=== PATIENT | male | born 1995 | race Hispanic/Latino ===

== ENCOUNTER 2018-09-05 10:02 | Emergency (ER) | payer BC ==
[2018-09-05 10:49] LABS: Absolute Lymphocytes (CBC) 0.9 K/uL (0.7-4.9); Absolute Monocytes 0.6 K/uL (0.1-1.3); Absolute Neutrophil 7.6 K/uL (1.8-8.0); Basophils % 0.3 % (0-1.3); Eosinophils % 0.6 % (0-4.4); Hematocrit 45.2 % (39.6-49.0); MCH 31.4 pg (27.0-35.0); MPV 9.9 fL (7.6-11.3); Monocytes % 6.2 % (3.3-12.3); RBC Red Blood Cell Count 5.03 M/uL (4.33-5.43)
[2018-09-05 11:06] LABS: BUN Blood Urea Nitrogen 13 mg/dL (7-18); Bicarbonate 25 mmol/L (21-32); Glucose Level 150 mg/dL (74-106); Potassium 3.7 mmol/L (3.5-5.1); Sodium Level 137 mmol/L (136-145); Troponin (Emerg Dept Use Only) < 0.02 ng/mL (0.0-0.045)
--- NOTE | 2018-09-05 11:17 | RAD REPORT ---
EXAM DESCRIPTION: RAD - Chest Single View - 09/05/2018 11:08 am CLINICAL HISTORY: dizziness Chest pain. COMPARISON: Chest Single View dated 07/31/2016 FINDINGS: Portable technique limits examination quality. The lungs are grossly clear. The heart is normal in size. No displaced fractures. IMPRESSION: No acute intrathoracic process suspected.
--- NOTE | 2018-09-05 11:28 | ER ---
Nurse's Notes [facility] Name: Pako Aguilar Age: 23 yrs Sex: Male : 1995 Arrival Date: 09/05/2018 Time: 10:06 Bed 17 Private MD: None, None Diagnosis: Acute stress reaction;Dizziness and giddiness;Hyperventilation Presentation: 09/05 10:26 Presenting complaint: Patient states: started as feeling light headed, dizzy while at iw work, felt off balance, also felt heaviness in left arm, checked his sugar and it was 60, ate something, came up to 140, felt like he was making himself fell panicked because he was worried about a heart attack, had a similar episode of anxiety 2 years ago. Transition of care: patient was not received from another setting of care. Onset of symptoms was September 05, 2018. Risk Assessment: Do you want to hurt yourself or someone else? Patient reports no desire to harm self or others. Initial Sepsis Screen: Does the patient meet any 2 criteria? No. Patient's initial sepsis screen is negative. Does the patient have a suspected source of infection? No. Patient's initial sepsis screen is negative. Care prior to arrival: None. 10:26 Method Of Arrival: Ambulatory iw 10:26 Acuity: HERMILO 3 iw Historical: - Allergies: 10:29 NKA; iw - Home Meds: 10:29 Lantus 100 unit/mL Sub-Q soln 24 unit nightly [Active]; Novolog 100 unit/mL Sub-Q soln iw after meals [Active]; - PMHx: 10:29 Diabetes - IDDM; iw - PSHx: 10:29 None; iw - Immunization history:: Adult Immunizations not up to date. - Social history:: Smoking status: Patient uses tobacco products, 2 packs per week. - Ebola Screening: : Patient negative for fever greater than or equal to 101.5 degrees Fahrenheit, and additional compatible Ebola Virus Disease symptoms Patient denies exposure to infectious person Patient denies travel to an Ebola-affected area in the 21 days before illness onset No symptoms or risks identified at this time. Screenin:47 Abuse screen: Denies threats or abuse. Nutritional screening: No deficits noted. em Tuberculosis screening: No symptoms or risk factors identified. Fall Risk None identified. Assessment: 10:40 General: Appears in no apparent distress. comfortable, Behavior is calm, cooperative. em Pain: Denies pain. Neuro: Level of Consciousness is awake, alert, obeys commands, Oriented to person, place, time, situation, Reports dizziness. Cardiovascular: Denies chest pain, lightheadedness, Capillary refill < 3 seconds Patient's skin is warm and dry. Respiratory: Airway is patent Respiratory effort is even, unlabored, Respiratory pattern is regular, symmetrical, Breath sounds are clear bilaterally. GI: Abdomen is flat, Abd is soft and non tender X 4 quads. : No signs and/or symptoms were reported regarding the genitourinary system. EENT: No signs and/or symptoms were reported regarding the EENT system. Derm: Skin is intact, is healthy with good turgor, Skin is pink, warm \T\ dry. Musculoskeletal: Range of motion: intact in all extremities. 10:50 Reassessment: Patient appears in no apparent distress at this time. I agree with above iw assessment by Gold Simmons LVN. 11:36 Reassessment: Patient appears in no apparent distress at this time. No changes from em previously documented assessment. Patient and/or family updated on plan of care and expected duration. Pain level reassessed. Patient is alert, oriented x 3, equal unlabored respirations, skin warm/dry/pink. Patient denies pain at this time. Patient states feeling better. Patient states symptoms have improved. Vital Signs: 10:29 BP 135 / 81; Pulse 86; Resp 16; Temp 98.2; Pulse Ox 100% on R/A; Weight 65.77 kg; iw Height 5 ft. 3 in. (160.02 cm); Pain 0/10; 11:36 BP 131 / 71; Pulse 91; Resp 18; Pulse Ox 99% on R/A; Pain 0/10; em 10:29 Body Mass Index 25.69 (65.77 kg, 160.02 cm) iw ED Course: 10:06 Patient arrived in ED. mr 10:06 None, None is Private Physician. mr 10:16 Gold Simmons LVN is Primary Nurse. em 10:16 Jamaal Mcclellan NP is PHCP. pm1 10:16 Richie Gustafson MD is Attending Physician. pm1 10:28 Triage completed. iw 10:29 Arm band placed on. iw 10:43 EKG done, by technical communication teacher. reviewed by Jamaal Mcclellan NP. at1 10:47 Patient has correct armband on for positive identification. Bed in low position. Call em light in reach. Side rails up X2. Adult w/ patient. surveillance system monitor on. Pulse ox on. NIBP on. 10:47 Initial lab(s) drawn, by me, sent to lab. Inserted saline lock: 20 gauge in right em antecubital area, using aseptic technique. Blood collected. 11:09 XRAY Chest (1 view) In Process Unspecified. EDMS 11:17 X-ray completed. Portable x-ray completed in exam room. Patient tolerated procedure ls3 well. 11:45 No provider procedures requiring assistance completed. intact, bleeding controlled, No em redness/swelling at site. Pressure dressing applied. Administered Medications: No medications were administered Outcome: 11:27 Discharge ordered by . pm1 11:45 Discharged to home ambulatory, with family. em 11:45 Condition: good 11:45 Discharge instructions given to patient, family, Instructed on discharge instructions, follow up and referral plans. Demonstrated understanding of instructions, follow-up care. 11:47 Patient left the ED. em Signatures: Dispatcher [employer] EDCA Mima López mr [place], Gold, CORK MOLDER CORK MOLDER em Agustina Hurd, CHA RN iw Jeny Webster, outcomes manager EKG Tat1 Jamaal Mcclellan, SUPERVISOR ADVERTISING DISPATCH CLERKS SUPERVISOR ADVERTISING DISPATCH CLERKS pm1 Josefina Walker ls3 Corrections: (The following items were deleted from the chart) 10:43 10:43 EKG done, by technical communication teacher. reviewed by Ricihe Gustafson MD at1 at1
--- NOTE | 2018-09-05 11:28 | EDPHYS ---
Physician Documentation [facility] Name: Pako Aguilar Age: 23 yrs Sex: Male : 1995 Arrival Date: 09/05/2018 Time: 10:06 Bed 17 Private MD: None, None ED Physician Richie Gustafson HPI: 09/05 11:17 This 23 yrs old Male presents to ER via Ambulatory with complaints of pm1 Dizziness, Arm Cramping, Shaking. 11:17 Patient felt dizzy this AM and then he started to get anxious. He checked his blood pm1 sugar and it was a little low at 60. He ate some food and his sugar improved. But he was afraid that he was having a heart attack, without any chest pain, and then he started to hyperventilate. He started to feel cramping in his left arm after hyperventilating. Patient currently without any symptoms of dizziness, or cramping. He still feels a "little shaky everywhere." Patient believes he has anxiety. Not diagnosed or taking any medications for anxiety. Historical: - Allergies: 10:29 NKA; iw - Home Meds: 10: Lantus 100 unit/mL Sub-Q soln 24 unit nightly [Active]; Novolog 100 unit/mL Sub-Q soln iw after meals [Active]; - PMHx: 10:29 Diabetes - IDDM; iw - PSHx: 10:29 None; iw - Immunization history:: Adult Immunizations not up to date. - Social history:: Smoking status: Patient uses tobacco products, 2 packs per week. - Ebola Screening: : Patient negative for fever greater than or equal to 101.5 degrees Fahrenheit, and additional compatible Ebola Virus Disease symptoms Patient denies exposure to infectious person Patient denies travel to an Ebola-affected area in the 21 days before illness onset No symptoms or risks identified at this time. ROS: 11:17 Constitutional: Negative for fever, chills, and weight loss, Eyes: Negative for injury, pm1 pain, redness, and discharge, ENT: Negative for injury, pain, and discharge, Neck: Negative for injury, pain, and swelling, Cardiovascular: Negative for chest pain, palpitations, and edema, Respiratory: Negative for shortness of breath, cough, wheezing, and pleuritic chest pain, Abdomen/GI: Negative for abdominal pain, nausea, vomiting, diarrhea, and constipation, Back: Negative for injury and pain, : Negative for injury, bleeding, discharge, and swelling, MS/Extremity: Negative for injury and deformity, Skin: Negative for injury, rash, and discoloration. 11:17 Neuro: Positive for Dizziness now resolved, Negative for altered mental status, headache, syncope, near syncope. Exam: 11:17 Constitutional: This is a well developed, well nourished patient who is awake, alert, pm1 and in no acute distress. Head/Face: Normocephalic, atraumatic. Eyes: Pupils equal round and reactive to light, extra-ocular motions intact. Lids and lashes normal. Conjunctiva and sclera are non-icteric and not injected. Cornea within normal limits. Periorbital areas with no swelling, redness, or edema. ENT: Nares patent. No nasal discharge, no septal abnormalities noted. Tympanic membranes are normal and external auditory canals are clear. Oropharynx with no redness, swelling, or masses, exudates, or evidence of obstruction, uvula midline. Mucous membranes moist. Neck: Trachea midline, no thyromegaly or masses palpated, and no cervical lymphadenopathy. Supple, full range of motion without nuchal rigidity, or vertebral point tenderness. No Meningismus. Chest/axilla: Normal chest wall appearance and motion. Nontender with no deformity. No lesions are appreciated. Cardiovascular: Regular rate and rhythm with a normal S1 and S2. No gallops, murmurs, or rubs. Normal PMI, no JVD. No pulse deficits. Respiratory: Lungs have equal breath sounds bilaterally, clear to auscultation and percussion. No rales, rhonchi or wheezes noted. No increased work of breathing, no retractions or nasal flaring. Abdomen/GI: Soft, non-tender, with normal bowel sounds. No distension or tympany. No guarding or rebound. No evidence of tenderness throughout. Back: No spinal tenderness. No costovertebral tenderness. Full range of motion. Skin: Warm, dry with normal turgor. Normal color with no rashes, no lesions, and no evidence of cellulitis. MS/ Extremity: Pulses equal, no cyanosis. Neurovascular intact. Full, normal range of motion. Neuro: Awake and alert, GCS 15, oriented to person, place, time, and situation. Cranial nerves II-XII grossly intact. Motor strength 5/5 in all extremities. Sensory grossly intact. Cerebellar exam normal. Normal gait. 11:17 Psych: Behavior/mood is anxious, Affect is animated, Oriented to person, place, time, Patient has no thoughts/intents to harm self or others. Vital Signs: 10:29 BP 135 / 81; Pulse 86; Resp 16; Temp 98.2; Pulse Ox 100% on R/A; Weight 65.77 kg; iw Height 5 ft. 3 in. (160.02 cm); Pain 0/10; 11:36 BP 131 / 71; Pulse 91; Resp 18; Pulse Ox 99% on R/A; Pain 0/10; em 10:29 Body Mass Index 25.69 (65.77 kg, 160.02 cm) iw MDM: 10:19 Patient medically screened. pm1 11:17 Data reviewed: vital signs. Data interpreted: Pulse oximetry: on room air is 100 %. pm1 Interpretation: normal. Counseling: I had a detailed discussion with the patient and/or guardian regarding: the historical points, exam findings, and any diagnostic results supporting the discharge/admit diagnosis, lab results, radiology results, the need for outpatient follow up, to return to the emergency department if symptoms worsen or persist or if there are any questions or concerns that arise at home. 09/05 10:25 Order name: Basic Metabolic Panel; Complete Time: 11:07 pm1 09/05 10:25 Order name: CBC with Diff; Complete Time: 11: pm1 09/05 10:25 Order name: Troponin (emerg Dept Use Only); Complete Time: 11:07 pm1 09/05 10:25 Order name: XRAY Chest (1 view); Complete Time: 11:31 pm1 09/05 10:25 Order name: EKG; Complete Time: 10:26 pm1 09/05 10:25 Order name: Cardiac monitoring; Complete Time: 10:47 pm1 09/05 10:25 Order name: EKG - Nurse/Tech; Complete Time: 10:47 pm1 09/05 10:25 Order name: IV Saline Lock; Complete Time: 10:47 pm1 09/05 10:25 Order name: Labs collected and sent; Complete Time: 10:47 pm1 09/05 10:25 Order name: O2 Per Protocol; Complete Time: 10:47 pm1 09/05 10:25 Order name: O2 Sat Monitoring; Complete Time: 10:47 pm1 Administered Medications: No medications were administered Disposition: 12:31 Co-signature as Attending Physician, Richie Gustafson MD I agree with the assessment and kdr plan of care. Disposition: 09/05/18 11:27 Discharged to Home. Impression: Dizziness and giddiness, Acute stress reaction, Hyperventilation. - Condition is Stable. - Discharge Instructions: Panic Attacks, Dizziness, Hyperventilation, Stress and Stress Management, Generalized Anxiety Disorder. - Work release form, Medication Reconciliation Form, Thank You Letter form. - Follow up: Emergency Department; When: As needed; Reason: Worsening of condition. Follow up: Private Physician; When: 2 - 3 days; Reason: Recheck today's complaints, Continuance of care, Re-evaluation by your physician. - Problem is new. - Symptoms have improved. Signatures: Dispatcher [employer] EDRichie Jones MD MD [facility] Gold Simmons, BULB GRADER BULB GRADER em Agustina Hurd, CHA RN iw Jamaal Mcclellan, JUNE HYPO DIPPER pm1 Corrections: (The following items were deleted from the chart) 11:47 11:27 09/05/2018 11:27 Discharged to Home. Impression: Dizziness and giddinessAcute em stress reaction; Hyperventilation. Condition is Stable. Forms are Medication Reconciliation Form, Thank You Letter, Antibiotic Education, Prescription Opioid Use. Follow up: Emergency Department; When: As needed; Reason: Worsening of condition. Follow up: Private Physician; When: 2 - 3 days; Reason: Recheck today's complaints, Continuance of care, Re-evaluation by your physician. Problem is new. Symptoms have improved. pm1
--- NOTE | 2018-09-05 15:12 | EKG ---
Test Date: 2018-09-05 Test Time: 10:35:29 Software Test Engineer: KORI MEASUREMENT RESULTS: Intervals: Rate: 85 [place]: 150 QRSD: 100 QT: 346 QTc: 411 [place]: P: 62 [place]: 150 QRS: 53 T: 47 INTERPRETIVE STATEMENTS: Normal sinus rhythm with sinus arrhythmia Normal ECG Compared to ECG 07/31/2016 11:34:49 Atrial premature complex(es) no longer present Short [place] interval no longer present Electronically Signed On 09-05-18 15:10:29 SPECIAL SERVICES DIRECTOR by Heri Lara
== END 2018-09-05 11:47 | disposition home or self-care (01) ==
LOC: ER 10:02
DX: F43.9 Reaction to severe stress, unspecified (principal); R42 Dizziness and giddiness; R06.4 Hyperventilation; E11.9 Type 2 diabetes mellitus without complications; Z79.4 Long term (current) use of insulin; F17.210 Nicotine dependence, cigarettes, uncomplicated
CPT/HCPCS: 36415; 71045; 80048; 84484; 85025; 93005; 99284

== ENCOUNTER 2022-06-25 10:20 | Emergency (ER) | payer BC, OTHER ==
--- OUTSIDE RECORDS SUMMARY | 2022-06-25 10:26 | XMS REPORT | Continuity of Care Document ---
:1995 Author Organization [facility] t Address [address] [place] [address] Care Team Providers Name Role Phone Adalid Attending Clinician Unavailable Adalid Admitting Clinician Unavailable Payers Payer Name Policy Type Policy Number Effective Date Expiration Date Saturday HEALTH [id number] PLANS [employer] [place] PPEC [id number] 2021 INSURANCE COMPANY 00:00:00 - [employer] (INDEMNITY) [id number] 2020 [facility] 00:00:00 PLAN (EPO) Problems Condition Condition Condition Status Onset Resolution Last Treating Co mments Source Name Details Category Date Date Treatment Clinician Date Abnormal Abnormal Problem Active [facility] liver Liver 12-31 Family function Function 00:00: Practi c 00 e ALT (SGPT) ALT (SGPT) Problem Active [facility] level Level 3-23 Family raised Raised 00:00: Practic 00 e Increased Increased Problem Active Sheila jayden aspartate Aspartate 12-20 Fami ly transamina Transamina 00:00: Pr actic se level se Level 00 e Body mass Body Mass Problem Active Sheila jayden index Index 3-30 Family 25-29 - 25-29 - 00:00: Practic overweight Overweight 00 e Type 1 Type 1 Problem Active [facility] diabetes Diabetes 04-07 Family mellitus Mellitus 00:00: Practi c without without 00 e complicati Complicati on on Overweight Overweight Problem Active [facility] ill[facility] 04-07 Family 00:00: Practic 00 e Clinical Clinical Problem Active [facility] finding Finding 04-07 Family 00:00: Practic 00 e Hypoglycem Hypoglycem Problem Active 2016-09 [facility] ill[facility] ia ia Family 00:00: Practic 00 e Long-term Long-term Problem Active 2016-09 Sheila jayden current Current 0-09 Family use of Use of 00:00: Practic insulin Insulin 00 e 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 [facility] athy due athy Due 0- Family to type 1 to Type 1 00:00: Prac tic diabetes Diabetes 00 e mellitus Mellitus Disorder Disorder Problem Active 2016-09 Sajan ge of nervous of Nervous 0- Fa joselin system due System Due 00:00: Pr actic to type 1 to Type 1 00 e diabetes Diabetes mellitus Mellitus Type 1 Type 1 Problem Active [facility] diabetes Diabetes Family mellitus Mellitus Practi c e Family Family Problem Active [facility] history of History of Fa joselin diabetes Diabetes Practi c mellitus Mellitus e Allergies, Adverse Reactions, Alerts This patient has no known allergies or adverse reactions. Social History Smoking Status Start Date Stop Date Source Light Tobacco Smoker [facility] Practice Medications Ordered Filled Start Stop Current Ordering Indication Dosage Frequency Signature Comments Components Source Medication Medication Date Date Medication? Clinician (SIG) Name Name Admelog Admelog No Admelog Ame e Ajit Fong Fam charles U-100 U-100 U-100 Practic Insulin Insulin Insulin e lispro 100 lispro 100 lispro 100 unit/mL unit/mL unit/mL subcutaneou subcutaneou subcutaneo s pen GIve s pen GIve us pen before before GIve meals using meals using before ICR 1:10; ICR 1:10; meals CF 1:40: CF 1:40: using ICR TDD 60 TDD 60 1:10; CF 1:40: TDD 60 FreeStyle FreeStyle No [facility] Ny[facility] 2 Nyasia 2 [facility] [place] USE [place] USE [place] USE Practic DIRECTED DIRECTED e ONCE DAILY ONCE DAILY DIRECTED ONCE DAILY FreeStyle FreeStyle No FreeStyle [facility] Nyasia 2 Nyasia 2 [facility] Sensor kit Sensor kit Sensor kit Practic USE USE USE e DIRECTED DIRECTED DIRECTED AND CHANGE AND CHANGE AND CHANGE EVERY 14 EVERY 14 EVERY 14 DAYS DAYS DAYS Glucagon Glucagon No Glucagon Sheila carpenter (HCl) (HCl) (HCl) [facility] Emergency Practic Kit Kit Kit e Lantus Lantus No Lantus [facility] Solleticia Fong Fam charles U-100 U-100 U-100 Practic Insulin 100 Insulin 100 Insulin e unit/mL (3 unit/mL (3 100 mL) mL) unit/mL (3 subcutaneou subcutaneou mL) s pen START s pen START subcutaneo BY BY us pen INJECTING INJECTING START BY 35 UNITS 35 UNITS INJECTING SUBCUTANEOU SUBCUTANEOU 35 UNITS SLY ONCE SLY ONCE SUBCUTANEO DAILY IN DAILY IN USLY ONCE THE MORNING THE MORNING DAILY IN INCREASE TO INCREASE TO THE 50 UNITS 50 UNITS MORNING DIRECTED DIRECTED INCREASE TO 50 UNITS DIRECTED ondansetron ondansetron No ondansetro [facility] 4 mg 4 mg n 4 mg Family disintegrat disintegrat disintegra Practic ing tablet ing tablet ting e DISSOLVE 1 DISSOLVE 1 tablet TABLET IN TABLET IN DISSOLVE 1 MOUTH EVERY MOUTH EVERY TABLET IN 6 HOURS 6 HOURS MOUTH NEEDED FOR NEEDED FOR EVERY 6 NAUSEA FOR NAUSEA FOR HOURS VOMITING VOMITING NEEDED FOR NAUSEA FOR VOMITING Immunizations Ordered Immunization Filled Immunization Date Status Commen ts Source Name Name COVID-19, mRNA, COVID-19, mRNA, 2021-09-20 Completed [facility] Family LNP-S, PF, 30 LNP-S, PF, 30 00:00:00 Practice mcg/0.3 mL dose mcg/0.3 mL dose (Pfizer-BioNTech) (Pfizer-BioNTech) COVID-19, mRNA, COVID-19, mRNA, 2021-08-30 Completed [facility] Family LNP-S, PF, 30 LNP-S, PF, 30 00:00:00 Practice mcg/0.3 mL dose mcg/0.3 mL dose (Pfizer-BioNTech) (Pfizer-BioNTech) influenza, influenza, 2020-05-31 [facility] injectable, injectable, 00:00:00 Practice quadrivalent quadrivalent tetanus toxoid, tetanus toxoid, 2017-09-30 Completed [facility] Family unspecified unspecified 00:00:00 Practice formulation formulation Vital Signs Vital Name Observation Time Observation Value Comments Source BP Diastolic 2022-03-16 00:00:00 68 mm[Hg] [facility] Height 2022-03-16 00:00:00 64 [in_i] [facility] BMI (Body Mass 2022-03-16 00:00:00 27.3 kg/m2 [facility] Family Index) Practice BP Systolic 2022-03-16 00:00:00 122 mm[Hg] [facility] Body Weight 2022-03-16 00:00:00 159 [lb_av] [facility] BP Diastolic 2021-12-20 00:00:00 78 mm[Hg] [facility] Height 2021-12-20 00:00:00 64 [in_i] [facility] BMI (Body Mass 2021-12-20 00:00:00 28.3 kg/m2 [facility] BP Systolic 2021-12-20 00:00:00 127 mm[Hg] [facility] Body Weight 2021-12-20 00:00:00 165 [lb_av] [facility] BP Diastolic 2021-09-21 00:00:00 71 mm[Hg] [facility] Height 2021-09-21 00:00:00 64 [in_i] [facility] BMI (Body Mass 2021-09-21 00:00:00 27.7 kg/m2 [facility] BP Systolic 2021-09-21 00:00:00 110 mm[Hg] [facility] Body Weight 2021-09-21 00:00:00 161.2 [lb_av] [facility] BP Diastolic 2021-05-19 00:00:00 70 mm[Hg] [facility] Height 2021-05-19 00:00:00 64 [in_i] [facility] BMI (Body Mass 2021-05-19 00:00:00 26.4 kg/m2 [facility] BP Systolic 2021-05-19 00:00:00 111 mm[Hg] [facility] Body Weight 2021-05-19 00:00:00 153.6 [lb_av] [facility] BP Diastolic 2020-12-27 00:00:00 79 mm[Hg] [facility] Height 2020-12-27 00:00:00 64 [in_i] [facility] BMI (Body Mass 2020-12-27 00:00:00 25.6 kg/m2 [facility] BP Systolic 2020-12-27 00:00:00 131 mm[Hg] [facility] Body Weight 2020-12-27 00:00:00 149 [lb_av] [facility] BP Diastolic 2020-07-12 00:00:00 68 mm[Hg] [facility] Height 2020-07-12 00:00:00 64 [in_i] [facility] BMI (Body Mass 2020-07-12 00:00:00 25.1 kg/m2 [facility]) Practice BP Systolic 2020-07-12 00:00:00 118 mm[Hg] [facility] Body Weight 2020-07-12 00:00:00 146 [lb_av] [facility] Procedures This patient has no known procedures. Plan of Care Planned Activity Planned Date Details Comments Source Diagnostic Test 2022-03-16 glucose, fingerstick, Sheila jayden [facility] Pending 00:00:00 blood [code = Practice glucose, fingerstick, blood] Diagnostic Test 2022-03-16 hemoglobin A1C, [facility] amil Pending 00:00:00 fingerstick [code = Practice hemoglobin A1C, fingerstick] Diagnostic Test 2022-03-16 hepatitis panel [facility] Pending 00:00:00 (A+B+C), acute, serum Practi ce [code = hepatitis panel (A+B+C), acute, serum] Diagnostic Test 2022-03-16 ALT (alanine [facility] Pending 00:00:00 aminotransferase), Practice serum or plasma [code = ALT (alanine aminotransferase), serum or plasma] Diagnostic Test 2022-03-16 AST/SGOT (aspartate [facility] Pending 00:00:00 aminotransferase), Practice serum or plasma [code = AST/SGOT (aspartate aminotransferase), serum or plasma] Encounters Start End Encounter Admission Attending Care Care Encounter Source Date/Time Date/Time Type Type Clinicians Facility Department ID 2022-06-10 2022-06-10 Outpatient Daniel_T VFP VFP [id number] [address] [place] [address] 00:00:00 00:00:00 [id number] Family Practic e 2022-05-06 2022-05-06 Outpatient Daniel_T VFP VFP [id number] [address] [place] [address] 00:00:00 00:00:00 [id number] Family Practic e 2022-04-05 2022-04-05 Outpatient Daniel_T VFP VFP [id number] [address] [place] [address] 11:34:00 11:34:00 [id number] Family Practic e 2022-03-16 2022-03-16 Outpatient Daniel_T VFP VFP [id number] [address] [place] [address] 11:55:00 11:55:00 [id number] Family Practic e 2022-03-16 2022-03-16 Alex VFP [place] - [id number] V illage 00:00:00 00:00:00 [facility] Family Min Medical - Practrace womack MD: [id number] VM_RUSS_[place] issac [facility], [facility] [address], [place] [address] , Ph. 2022-02-21 2022-02-21 Outpatient Daniel_T VFP VFP [id number] [address] [place] [address] 10:35:00 10:35:00 [id number] Family Practic e 2022-01-12 2022-01-12 Outpatient Daniel_T VFP VFP [id number] [address] [place] [address] 11:11:00 11:11:00 [id number] Family Practic e 2021-12-23 2021-12-23 Outpatient Daniel_T VFP VFP [id number] [address] [place] [address] 11:39:00 11:39:00 [id number] Family Practic e 2021-12-20 2021-12-20 Outpatient Daniel_T VFP VFP [id number] [address] [place] [address] 05:19:00 05:19:00 [id number] Family Practic e 2021-12-20 2021-12-20 Alex VFP [place] - [id number] V illage 00:00:00 00:00:00 [facility] MinMarshal - Practrace womack MD: [id number] TR_RUSS_[place] issac [facility], [facility] [address] [address] , Ph. 2021-10-10 2021-10-10 Outpatient Daniel_T VFP VFP [id number] [address] [place] [address] 11:59:00 11:59:00 [id number] Family Practic e 2021-10-05 2021-10-05 Outpatient Daniel_T VFP VFP [id number] [address] [place] [address] 06:02:00 06:02:00 [id number] Family Practic e 2021-09-21 2021-09-21 Outpatient Daniel_T VFP VFP [id number] [address] [place] [address] 05:55:00 05:55:00 [id number] Family Practic e 2021-09-21 2021-09-21 Alex VFP [place] - [id number] V illage 00:00:00 00:00:00 [facility] Family MinMarshal - Practrace womack MD: [id number] HARPREETRUSSSymoneCortez issac [facility], [address] [address] , Ph. 2021-05-26 2021-05-26 Outpatient Daniel_T VFP VFP [id number] [address] [place] [address] 04:07:00 04:07:00 [id number] Family Practic e 2021-05-25 2021-05-25 Outpatient Daniel_T VFP VFP [id number] [address] [place] [address] 01:42:00 01:42:00 [id number] Family Practic e 2021-05-19 2021-05-19 Outpatient Daniel_T VFP VFP [id number] [address] [place] [address] 02:59:00 02:59:00 [id number] Family Practic e 2021-05-19 2021-05-19 Alex VFP [place] - [id number] V illage 00:00:00 00:00:00 [facility] Family MinMarshal MD: [id number] Malcom issac [facility], [address] [address] , Ph. 2021-05-17 2021-05-17 Outpatient Daniel_T VFP VFP [id number] [address] [place] [address] 07:34:00 07:34:00 [id number] Family Practic e 2020-12-29 2020-12-29 Outpatient Daniel_T VFP VFP [id number] [address] [place] [address] 07:46:00 07:46:00 [id number] Family Practic e 2020-12-29 2020-12-29 Outpatient Daniel_T VFP VFP [id number] [address] [place] [address] 07:46:00 07:46:00 [id number] Family Practic e 2020-12-29 2020-12-29 Outpatient Daniel_T VFP VFP [id number] [address] [place] [address] 07:46:00 07:46:00 [id number] Family Practic e 2020-12-29 2020-12-29 Outpatient Daniel_T VFP VFP [id number] 20 [facility] 07:46:00 07:46:00 [id number] Family Practic e 2020-12-29 2020-12-29 Outpatient Daniel_T VFP VFP [id number] 620 [facility] 07:46:00 07:46:00 [id number] Family Practic e 2020-12-27 2020-12-27 Outpatient Daniel_T VFP VFP [id number] [address] [place] [address] 05:33:00 05:33:00 [id number] Family Practic e 2020-12-27 2020-12-27 Alex VFP [place] - [id number] V illage 00:00:00 00:00:00 [facility] Family MinMarshal - Hai womack MD: [id number] VM_HOU_Shanew e [facility], [address], [place] [address] , Ph. 2020-12-15 2020-12-15 Outpatient Daniel_T VFP VFP [id number] [address] [place] [address] 03:34:00 03:34:00 [id number] Family Practic e 2020-12-15 2020-12-15 Outpatient Daniel_T VFP VFP [id number] [address] [place] [address] 03:34:00 03:34:00 [id number] Family Practic e 2020-12-09 2020-12-09 Outpatient Daniel_T VFP VFP [id number] [address] [place] [address] 01:02:00 01:02:00 [id number] Family Practic e 2020-12-02 2020-12-02 Outpatient Daniel_T VFP VFP [id number] [address] [place] [address] 03:40:00 03:40:00 [id number] Family Practic e 2020-10-12 2020-10-12 Outpatient Daniel_T VFP VFP [id number] [address] [place] [address] 04:49:00 04:49:00 [id number] Family Practic e 2020-07-12 2020-07-12 Outpatient Daniel_T VFP VFP [id number] [address] [place] [address] 11:56:00 11:56:00 [id number] Family Practic e 2020-07-12 2020-07-12 Alex VFP [place] - [id number] V illage 00:00:00 00:00:00 [facility] - Practrace womack MD: [id number] VM_HOU_Domenico [place] [facility], [facility] [address] [place] [address] , Ph. 2020-07-11 2020-07-11 Outpatient Pako_T [facility] [id number] [facility] 06:35:00 06:35:[address] [place] [address] e Results Test Description Test Time Test Comments Results Result Comments Source Glucose [Mass/volume] in Capillary blood 2022-03-16 09:08:59 Test Item Value Reference Range Interpretation Comme nts Blood Glucose: mg/dl (test code = Blood Glucose: mg/dl) 182 [facility] [id number] 09:08:47 Test Item Value Reference Range Interpretation Comments Hemoglobin A1C Fingerstick: (test code 7.3 = Hemoglobin A1C Fingerstick:) [facility] [id number] 15:30:28 Test Item Value Reference Range Interpretation Comments Hemoglobin A1C Fingerstick: (test code 6.6 = Hemoglobin A1C Fingerstick:) [facility] [Mass/volume] in Capillary [id number] 15:27:40 Test Item Value Reference Range Interpretation Comments Blood Glucose: mg/dl (test code = Blood 193 Glucose: mg/dl) [facility] device [id number] 15:54:31 Test Item Value Reference Range Interpretation Comments Hemoglobin A1C Fingerstick: (test code 6.8 = Hemoglobin A1C Fingerstick:) [facility] [Mass/volume] in Capillary [id number] 15:49:01 Test Item Value Reference Range Interpretation Comments Blood Glucose: mg/dl (test code = Blood 222 Glucose: mg/dl) [facility]
[2022-06-25 11:04] LABS: Absolute Lymphocytes (CBC) 1.7 K/uL (0.7-4.9); Hematocrit 44.4 % (39.6-49.0); MCV 89.5 fL (80-100); MPV 9.9 fL (7.6-11.3); RBC Red Blood Cell Count 4.96 M/uL (4.33-5.43)
--- NOTE | 2022-06-25 11:16 | RAD REPORT ---
EXAM DESCRIPTION: Debra Single View06/25/2022 11:04 am CLINICAL HISTORY: Chest pain COMPARISON: 2017 FINDINGS: The lungs appear clear of acute infiltrate. The heart is normal size IMPRESSION: No acute abnormalities displayed
[2022-06-25 11:22] LABS: BUN Blood Urea Nitrogen 20 mg/dL (7-18); Bicarbonate 29 mmol/L (21-32); Glomerular Filtration Rate 118 ml/min (=/>90); Glucose Level 153 mg/dL (74-106); Potassium 3.5 mmol/L (3.5-5.1); Sodium Level 139 mmol/L (136-145)
[2022-06-25 11:26] LABS: Troponin High Sensitivity < 3.0 pg/mL (<58.9)
--- NOTE | 2022-06-25 11:36 | ER ---
Nurse's Notes [facility] Name: Pako Aguilar Age: 27 yrs Sex: Male : 1995 Arrival Date: 06/25/2022 Time: 10:23 Bed 10 Private MD: Diagnosis: Costochondritis Presentation: 06/25 10:42 Chief complaint: Patient states: Intermittent chest pain x 3 days. Coronavirus screen: jl7 Vaccine status: Patient reports receiving the 2nd dose of the covid vaccine. Ebola Screen: No symptoms or risks identified at this time. Initial Sepsis Screen: Does the patient meet any 2 criteria? No. Patient's initial sepsis screen is negative. Does the patient have a suspected source of infection? No. Patient's initial sepsis screen is negative. Risk Assessment: Do you want to hurt yourself or someone else? Patient reports no desire to harm self or others. Onset of symptoms was June 23, 2022. Care prior to arrival: None. 10:42 Method Of Arrival: Ambulatory jl7 10:42 Acuity: HERMILO 3 jl7 Triage Assessment: 10:44 General: Appears in no apparent distress. uncomfortable, Behavior is calm, cooperative, jl7 appropriate for age. Pain: Complains of pain in right breast Pain does not radiate. Pain currently is 6 out of 10 on a pain scale. Cardiovascular: Patient's skin is warm and dry. Historical: - Allergies: 10:44 NKA; jl7 - Home Meds: 10:44 Lantus 100 unit/mL Sub-Q soln 24 unit nightly [Active]; Admelog U-100 Insulin lispro jl7 100 unit/mL subcutaneous soln [Active]; - PMHx: 10:44 Diabetes - IDDM; jl7 - Immunization history:: Adult Immunizations up to date. - Social history:: Smoking status: Patient reports use of chewing tobacco. Screenin:25 Abuse screen: Denies threats or abuse. Nutritional screening: No deficits noted. bm7 Tuberculosis screening: No symptoms or risk factors identified. Fall Risk None identified. Assessment: 11:25 Reassessment: Patient and/or family updated on plan of care and expected duration. Pain bm7 level reassessed. Patient is alert, oriented x 3, equal unlabored respirations, skin warm/dry/pink. Vital Signs: 10:42 BP 140 / 82; Pulse 83; Resp 17; Temp 98.4; Pulse Ox 100% ; Weight 72.57 kg; Height 5 jl7 ft. 3 in. (160.02 cm); Pain 6/10; 12:07 BP 130 / 73; Pulse 68; Resp 16; Pulse Ox 100% on R/A; bm7 10:42 Body Mass Index 28.34 (72.57 kg, 160.02 cm) jl7 ED Course: 10:23 Patient arrived in ED. am2 10:34 Mili Peacock FNP is PHCP. jh7 10:34 Ernie West DO is Attending Physician. jh7 10:44 Triage completed. jl7 10:44 Arm band placed on right wrist. jl7 10:47 Kathia Queen, RN is Primary Nurse. bm7 11:00 Patient has correct armband on for positive identification. Placed in gown. Bed in low bm7 position. Call light in reach. Side rails up X 1. Client placed on continuous cardiac and pulse oximetry monitoring. NIBP monitoring applied. residential monitor on. Warm blanket given. 11:00 No provider procedures requiring assistance completed. Initial lab(s) drawn, by maynor coburn sent to lab. EKG done, by ED staff, reviewed by Mili ZHANG. Inserted saline lock: 20 gauge in left antecubital area, using aseptic technique. Blood collected. Patient maintains SpO2 saturation greater than 95% on room air. 11:06 XRAY Chest (1 view) In Process Unspecified. EDMS 11:09 Troponin HS Sent. kc6 11:09 Basic Metabolic Panel Sent. kc6 11:25 No apparent distress. Resting quietly. Awaiting lab results. bm7 12:07 IV discontinued, intact, bleeding controlled, No redness/swelling at site. Pressure bm7 dressing applied. Administered Medications: No medications were administered Medication: 11:25 VIS not applicable for this client. bm7 Outcome: 11:35 Discharge ordered by . 7 12:07 Discharged to home ambulatory, with family. bm7 12:07 Condition: good 12:07 Discharge instructions given to patient, family, Instructed on discharge instructions, follow up and referral plans. medication usage, Demonstrated understanding of instructions, follow-up care, medications, Prescriptions given X 1. 12:08 Patient left the ED. bm7 Signatures: Dispatcher [employer] EDJose Acevedo RN RN jl7 Jeny Hancock am2 Kathia Queen RN RN bm7 Mili Peacock FNP FNP 7 Rocío Sim kc6
--- NOTE | 2022-06-25 11:36 | EDPHYS ---
Physician Documentation [facility] Name: Pako Aguilar Age: 27 yrs Sex: Male : 1995 Arrival Date: 06/25/2022 Time: 10:23 Bed 10 Private MD: ED Physician Ernie West HPI: 06/25 10:45 This 27 yrs old Male presents to ER via Ambulatory with complaints of Chest jh7 Pressure - right side. 10:45 Onset: The symptoms/episode began/occurred 2 day(s) ago. Associated signs and symptoms: jh7 The patient has no apparent associated signs or symptoms. 13:38 Patient reports right-sided chest pain since Saturday. He denies any other symptoms. jh7 Reports that he is not a smoker. States that he may have pulled a muscle while at work due to heavy lifting but that the pain is constant.. Historical: - Allergies: 10:44 NKA; jl7 - Home Meds: 10:44 Lantus 100 unit/mL Sub-Q soln 24 unit nightly [Active]; Admelog U-100 Insulin lispro jl7 100 unit/mL subcutaneous soln [Active]; - PMHx: 10:44 Diabetes - IDDM; jl7 - Immunization history:: Adult Immunizations up to date. - Social history:: Smoking status: Patient reports use of chewing tobacco. ROS: 10:45 Constitutional: Negative for fever, chills, and weight loss, Eyes: Negative for injury, jh7 pain, redness, and discharge, ENT: Negative for injury, pain, and discharge, Neck: Negative for injury, pain, and swelling, Respiratory: Negative for shortness of breath, cough, wheezing, and pleuritic chest pain, Abdomen/GI: Negative for abdominal pain, nausea, vomiting, diarrhea, and constipation, Back: Negative for injury and pain, Skin: Negative for injury, rash, and discoloration, Neuro: Negative for headache, weakness, numbness, tingling, and seizure. 10:45 Cardiovascular: Positive for chest pain, Negative for orthopnea, palpitations. 10:45 All other systems are negative. Exam: 10:45 Constitutional: This is a well developed, well nourished patient who is awake, alert, jh7 and in no acute distress. Head/Face: Normocephalic, atraumatic. Neck: Trachea midline, no thyromegaly or masses palpated, and no cervical lymphadenopathy. Supple, full range of motion without nuchal rigidity, or vertebral point tenderness. No Meningismus. Respiratory: Lungs have equal breath sounds bilaterally, clear to auscultation and percussion. No rales, rhonchi or wheezes noted. No increased work of breathing, no retractions or nasal flaring. Abdomen/GI: Soft, non-tender, with normal bowel sounds. No distension or tympany. No guarding or rebound. No evidence of tenderness throughout. Back: No spinal tenderness. No costovertebral tenderness. Full range of motion. Skin: Warm, dry with normal turgor. Normal color with no rashes, no lesions, and no evidence of cellulitis. MS/ Extremity: Pulses equal, no cyanosis. Neurovascular intact. Full, normal range of motion. Neuro: Awake and alert, GCS 15, oriented to person, place, time, and situation. Motor strength 5/5 in all extremities. Sensory grossly intact. Normal gait. Vital Signs: 10:42 BP 140 / 82; Pulse 83; Resp 17; Temp 98.4; Pulse Ox 100% ; Weight 72.57 kg; Height 5 [facility] ft. 3 in. (160.02 cm); Pain 6/10; 12:07 BP 130 / 73; Pulse 68; Resp 16; Pulse Ox 100% on R/A; bm7 10:42 Body Mass Index 28.34 (72.57 kg, 160.02 cm) [facility] MDM: 10:34 Patient medically screened. [facility] 11:40 Differential diagnosis: viral Infection, pneumonia Acute [place]. Data reviewed: vital [facility] signs, nurses notes, lab test result(s), EKG, radiologic studies, plain films. Data interpreted: Pulse oximetry: is 100 %. Interpretation: normal. Counseling: I had a detailed discussion with the patient and/or guardian regarding: the historical points, exam findings, and any diagnostic results supporting the discharge/admit diagnosis, to return to the emergency department if symptoms worsen or persist or if there are any questions or concerns that arise at home. 06/25 10:45 Order name: Basic Metabolic Panel; Complete Time: 11:34 [facility] 06/25 10:45 Order name: CBC with Diff; Complete Time: 11:34 [facility] 06/25 10:45 Order name: Troponin HS; Complete Time: 11:34 [facility] 06/25 10:45 Order name: XRAY Chest (1 view); Complete Time: 11: [facility] 06/25 10:45 Order name: EKG; Complete Time: 10:45 06/25 10:45 Order name: Cardiac monitoring; Complete Time: 10:59 [facility] 06/25 10:45 Order name: EKG - Nurse/Tech; Complete Time: 11: [facility] 06/25 10:45 Order name: IV Saline Lock; Complete Time: [facility] 06/25 10:45 Order name: Labs collected and sent; Complete Time: [facility] 06/25 10:45 Order name: O2 Per Protocol; Complete Time: 11: [facility] 06/25 10:45 Order name: O2 Sat Monitoring; Complete Time: 11: EC:45 Rate is 79 beats/min. Rhythm is regular. QRS [place] is Normal. IA interval is normal at [facility] 158 msec. QRS interval is normal at 96 msec. QT interval is normal at 356 msec. No Q waves. T waves are Normal. No ST changes noted. Clinical impression: Sinus arrythmia. Administered Medications: No medications were administered Disposition: 06/26 08:26 Co-signature as Attending Physician, Ernie WISE was immediately available on-site ms3 in the Emergency Department for consultation in the care of the patient. . Disposition Summary: 06/25/22 11:35 Discharge Ordered Location: Home [facility] Problem: new [facility] Symptoms: are unchanged [facility] Condition: Stable [facility] Diagnosis - Costochondritis [facility] Followup: [facility] - With: Private Physician - When: 2 - 3 days - Reason: Recheck today's complaints Discharge Instructions: - Discharge Summary Sheet [facility] - Costochondritis [facility] Forms: - Medication Reconciliation Form 7 - Work release form bm7 - Thank You Letter [facility] Prescriptions: - Naprosyn 500 mg Oral Tablet - take 1 tablet by ORAL route 2 times per day take with food; 30 tablet; Refills: jh 0, Product Selection Permitted - Zanaflex 4 mg Oral Tablet - take 1 tablet by ORAL route every 8 hours As needed; 20 tablet; Refills: 0, jh7 Product Selection Permitted Signatures: Dispatcher [facility] Jose Lawson, RN RN jl7 Ernie West DO DO ms3 Mili Peacock, SCREW MACHINE OPERATOR SINGLE SPINDLE SCREW MACHINE OPERATOR SINGLE SPINDLE jh7
--- NOTE | 2022-06-27 13:11 | EKG ---
Test Date: 2022-06-25 Test Time: 11:08:10 Keypunch Operator: CORINEN MEASUREMENT RESULTS: Intervals: Rate: 79 [place]: 158 QRSD: 96 QT: 356 QTc: 408 [place]: P: 66 [place]: 158 QRS: 55 T: 43 INTERPRETIVE STATEMENTS: Normal sinus rhythm with sinus arrhythmia Normal ECG Compared to ECG 09/05/2018 10:35:29 No significant changes Electronically Signed On 06-27-22 13:07:35 CDT by Navin Harry
[2022-06-27 14:57] VITALS: TEMP 98.4; O2SAT 100
[2022-06-27 15:05] VITALS: BP 130/73
== END 2022-06-25 12:08 | disposition home or self-care (01) ==
LOC: ER 10:20
DX: M94.0 Chondrocostal junction syndrome [Tietze] (principal); E11.9 Type 2 diabetes mellitus without complications; Z79.4 Long term (current) use of insulin; F17.220 Nicotine dependence, chewing tobacco, uncomplicated
CPT/HCPCS: 36415; 71045; 80048; 84484; 85025; 93005; 99285